=== PATIENT | male | born 1960 | race Caucasian/White ===

== ENCOUNTER → 2020-10-07 | Outpatient (CLI) | payer MEDICARE | END | disposition home or self-care (01) | LOC: COVID19 11:42 | PROVIDERS: ATTEND Student in an Organized Health Care Education/Training Program | DX: Z20.828 Contact with and (suspected) exposure to other viral communicable diseases (principal) ==

== ENCOUNTER 2021-01-26 13:34 | Emergency (ER) | payer MEDICARE ==
[~2021-01-26] VITALS: Ht 182.8 cm; Wt 83.9 kg
[2021-01-26] MEDS ORDERED: ANTIBIOTIC28.4 GM T (14:25)
== END 2021-01-26 14:20 | disposition home or self-care (01) ==
LOC: ED 13:34
DX: T22.20XA Burn of second degree of shoulder and upper limb, except wrist and hand, unspecified site, initial encounter (principal); F17.200 Nicotine dependence, unspecified, uncomplicated; X19.XXXA Contact with other heat and hot substances, initial encounter; Y93.G3 Activity, cooking and baking; Y92.89 Other specified places as the place of occurrence of the external cause; Y99.8 Other external cause status

== ENCOUNTER → 2021-01-30 | Outpatient (CLI) | payer MEDICARE ==
[~2021-01-30] MED LIST: ANTIBIOTIC28.4 GM T
== END ==
LOC: WOUNDCARE 07:42
PROVIDERS: ATTEND Nurse Practitioner
DX: T22.30XA Burn of third degree of shoulder and upper limb, except wrist and hand, unspecified site, initial encounter (principal); T31.0 Burns involving less than 10% of body surface; X10.2XXA Contact with fats and cooking oils, initial encounter; Y93.89 Activity, other specified; Y92.89 Other specified places as the place of occurrence of the external cause; Y99.8 Other external cause status

== ENCOUNTER → 2021-02-05 | Outpatient (CLI) | payer MEDICARE | LOC: WOUNDCARE 00:36 | PROVIDERS: ATTEND Nurse Practitioner | DX: T22.30XD Burn of third degree of shoulder and upper limb, except wrist and hand, unspecified site, subsequent encounter (principal); T31.0 Burns involving less than 10% of body surface; M79.622 Pain in left upper arm; X10.2XXD Contact with fats and cooking oils, subsequent encounter ==